=== PATIENT | female | born 1960 | race Caucasian/White ===

== ENCOUNTER 2017-04-27 12:42 | Outpatient (CLI) | payer BC ==
[~2017-04-27 12:42] MED LIST: LISI-694; METF-303
== END 2017-04-27 19:35 | disposition home or self-care (01) ==
LOC: SMA 12:42
PROVIDERS: ATTEND Family Medicine
DX: Z12.31 Encounter for screening mammogram for malignant neoplasm of breast (principal)
CPT/HCPCS: G0202

== ENCOUNTER 2017-05-18 13:03 | Outpatient (CLI) | payer BC | END 2017-05-18 21:06 | disposition home or self-care (01) | LOC: SUS 13:03 | PROVIDERS: ATTEND Family Medicine | DX: N63 Unspecified lump in breast (principal) | CPT/HCPCS: 76642 ==

== ENCOUNTER 2018-09-21 08:48 | Outpatient (CLI) | payer BC ==
[~2018-09-21 08:48] MED LIST changes: -METF-303; +METF500T6
== END 2018-09-21 20:58 | disposition home or self-care (01) ==
LOC: SMA 08:48
PROVIDERS: ATTEND Physician Assistant Medical
DX: N63.12 Unspecified lump in the right breast, upper inner quadrant (principal)
CPT/HCPCS: 76641; 77066